=== PATIENT | female | born 1965 | race Caucasian/White ===

== ENCOUNTER → 2018-11-02 | Outpatient (CLI) | payer OTHER ==
[~2018-11-02] MED LIST: ALBU90OI61 INH; AZIT250 PO; CODGUAEL PO; CYCL10 PO; GLIM2 PO; HYDACE5 PO; LATA.005SO BOTHEYES; LEVSOD25 PO; LISI20 PO; MOXI400 PO; PROCODE120 PO
== END | disposition home or self-care (01) ==
LOC: PLD 07:54 → LAB SHORT 07:54
DX: D18.09 Hemangioma of other sites (principal)
CPT/HCPCS: 88305

== ENCOUNTER 2018-11-13 06:20 | Day surgery (SDC) | payer OTHER ==
[~2018-11-13] VITALS: Ht 170.2 cm; Wt 150.5 kg
--- NOTE | 2018-11-13 06:58 | NUR ---
History, Chart, Medications and Allergies reviewed before start of procedure. Patient confirms NPO status and agrees with scheduled surgery. Lungs clear T/O to Auscultation. Pre-Op teaching done. Pt verbalizes understanding. Patient States Post-Procedure ride home has been arranged. Patient states colon prep results clear.
--- NOTE | 2018-11-13 08:05 | NUR ---
11/13/[address] HERE TO PROVIDE ANESTHESIA CARE TODAY, PLEASE SEE ANESTHESIA RECORD FOR DETAILS. History, Chart, Medications and Allergies reviewed before start of procedure. PATIENT CONFIRMS NPO STATUS AND AGREES WITH SCHEDULED PROCEDURE. MONITOR INTACT WITH CONTINUOUS PULSE OXIMETRY AND INTERMITTENT BP. O2 VIA N/C INTACT THROUGHOUT SEDATION/PROCEDURE.
--- NOTE | 2018-11-13 09:38 | NUR ---
SUMMARY: PT HAD UNCOMPLICATED POST PROCEDURE COURSE. UNABLE TO TOLERATE BP CUFF ON ARM RELATED TO STITCHES IN PLACE UNDER CUFF FROM OLD PROCEDURE. B/P 130S SYSTOLIC UPON ARRIVAL. NO SYMPTOMS OF HYPOTENSION SO DID NOT DO SECOND BP RELATED TO PTS INTOLERANCE OF CUFF. PT AMBULATED IN DEPARTMENT WITHOUT DIFFICULTY. NO C/O DIZZINESS. TOLERATING PO FLUIDS. REVIEWED DISCHARGE INSTRUCTIONS WITH PATIENT WHO VERBALIZED UNDERSTANDING OF ALL INSTRUCTIONS GIVEN. HANDOUTS GIVEN AND IV DC TIP INTACT. PT DC HOME WITH FRIEND TO DRIVE HER.
== END 2018-11-13 23:19 | disposition home or self-care (01) ==
LOC: ORSCMMR 06:20 → ORD 08:00 → ORSCMMR 08:00
PROVIDERS: Internal Medicine Gastroenterology
PROC: 0DBN8ZX Excision of Sigmoid Colon, Via Natural or Artificial Opening Endoscopic, Diagnostic (ICD-10-PCS; principal; 2018-11-13 08:00)
PROC: 0DBL8ZX Excision of Transverse Colon, Via Natural or Artificial Opening Endoscopic, Diagnostic (ICD-10-PCS; principal; 2018-11-13 08:00)
PROC: 0DBK8ZX Excision of Ascending Colon, Via Natural or Artificial Opening Endoscopic, Diagnostic (ICD-10-PCS; principal; 2018-11-13 08:00)
DX: Z12.11 Encounter for screening for malignant neoplasm of colon (principal); C18.7 Malignant neoplasm of sigmoid colon; D12.3 Benign neoplasm of transverse colon; D12.2 Benign neoplasm of ascending colon; K57.30 Diverticulosis of large intestine without perforation or abscess without bleeding; K64.8 Other hemorrhoids; E11.9 Type 2 diabetes mellitus without complications; I10 Essential (primary) hypertension; E66.01 Morbid (severe) obesity due to excess calories; Z68.43 Body mass index [BMI] 50.0-59.9, adult; Z79.899 Other long term (current) drug therapy
CPT/HCPCS: 82947; 88305; J2704; J7120

== ENCOUNTER → 2019-05-03 | Outpatient (CLI) | payer OTHER | END | disposition home or self-care (01) | LOC: PLD 10:31 → LAB SHORT 10:31 | DX: L30.8 Other specified dermatitis (principal); L28.0 Lichen simplex chronicus | CPT/HCPCS: 88305; 88312 ==

== ENCOUNTER 2019-12-03 06:24 | Day surgery (SDC) | payer OTHER ==
[~2019-12-03] VITALS: Ht 170 cm; Wt 143.7 kg
[2019-12-03] MEDS ORDERED: ALLEGRA ALLERG180 MG PO (06:59)
[2019-12-03] MEDS ORDERED: BASAGLAR K100 UNIT/1 SC (06:59)
[2019-12-03] MEDS ORDERED: FAMO20 PO (07:00)
[2019-12-03] MEDS ORDERED: XOLAIR150 MG/1 M IM (07:01)
[2019-12-03] MEDS ORDERED: MELATONIN5 M1 PO (07:02)
[2019-12-03] MEDS ORDERED: Hair, Skin & N1 EACH PO (07:02)
--- NOTE | 2019-12-03 07:56 | NUR ---
Ambulatory in Day Surgery History, Chart, Medications and Allergies reviewed before start of procedure.Patient states colon prep results clear. Patient confirms NPO status and agrees with scheduled surgery. Patient States Post-Procedure ride home has been arranged.
--- NOTE | 2019-12-03 08:31 | NUR ---
12/03/19 0831 Vidya Mcneal MONITOR INTACT WITH CONTINUOUS PULSE OXIMETRY AND INTERMITTENT BP.
--- NOTE | 2019-12-03 09:26 | NUR ---
Patient up to Ambulate independently. Gait steady. Discharge instructions reviewed with patient. Patient verbalizes understanding. Copy given to patient to take home. Discharged via wheelchair to private car for ride home WITH FRIEND.
== END 2019-12-03 22:51 | disposition home or self-care (01) ==
LOC: ORSCMMR 06:24 → ORD 08:00 → ORSCMMR 08:00
PROVIDERS: Internal Medicine Gastroenterology
PROC: 0DBN8ZX Excision of Sigmoid Colon, Via Natural or Artificial Opening Endoscopic, Diagnostic (ICD-10-PCS; principal; 2019-12-03 08:00)
DX: Z85.038 Personal history of other malignant neoplasm of large intestine (principal); Z86.010 Personal history of colon polyps; K63.5 Polyp of colon; K64.8 Other hemorrhoids; I10 Essential (primary) hypertension; E03.9 Hypothyroidism, unspecified; E11.9 Type 2 diabetes mellitus without complications; E66.9 Obesity, unspecified; Z68.42 Body mass index [BMI] 45.0-49.9, adult; G47.33 Obstructive sleep apnea (adult) (pediatric); Z79.4 Long term (current) use of insulin; Z79.899 Other long term (current) drug therapy
CPT/HCPCS: 82947; 88305; J2250; J2704; J7120

== ENCOUNTER → 2020-02-09 | Outpatient (CLI) | payer OTHER ==
[~2020-02-09] MED LIST changes: +ALLEGRA ALLERG180 MG PO; +BASAGLAR K100 UNIT/1 SC; +FAMO20 PO; +Hair, Skin & N1 EACH PO; +MELATONIN5 M1 PO; +XOLAIR150 MG/1 M IM
== END | disposition home or self-care (01) ==
LOC: LAB 19:20 → LAB SHORT 19:20
DX: N30.01 Acute cystitis with hematuria (principal)
CPT/HCPCS: 87077; 87086; 87186

== ENCOUNTER → 2020-05-29 | Outpatient (CLI) | payer OTHER ==
[~2020-05-29] MED LIST changes: +ATOR20 PO; +NOVOLOG FL100 UNIT/3; +PREG100 PO; +TIZA4 PO
== END | disposition home or self-care (01) ==
LOC: LAB SHORT 08:00 → PLD 08:00
DX: L08.0 Pyoderma (principal)
CPT/HCPCS: 87070; 87205

== ENCOUNTER 2020-09-19 22:29 | Emergency (ER) | payer OTHER ==
[~2020-09-19] VITALS: Ht 170.2 cm; Wt 143.3 kg
[~2020-09-19 22:29] MED LIST changes: -ATOR20 PO; -NOVOLOG FL100 UNIT/3; -PREG100 PO; -TIZA4 PO
[2020-09-20 00:17] LABS: BASOPHILS ABSOLUTE AUTO 0.02 K/mm3 (0.00-0.23); BASOPHILS PERCENT AUTO 0 % (0-2); EOSINOPHILS ABSOLUTE AUTO 0.01 K/mm3 (0.00-0.68); EOSINOPHILS PERCENT AUTO 0 % (0-6); Hematocrit 39.4 % (33.0-51.0); Hemoglobin 13.4 g/dL (11.5-16.0); IMMATURE GRAN ABSOLUTE AUTO 0.11 K/mm3 (0.00-0.10); IMMATURE GRAN PERCENT AUTO 1 % (0-1); LYMPHOCYTES ABSOLUTE AUTO 0.89 K/mm3 (0.84-5.20); LYMPHOCYTES PERCENT AUTO 8 % (21-46); MONOCYTES ABSOLUTE AUTO 0.06 K/mm3 (0.16-1.47); MONOCYTES PERCENT AUTO 1 % (4-13); Mean Corpuscular Volume 91 fL (80-100); Mean Platelet Volume 10.8 fL (9.1-12.4); NEUTROPHILS ABSOLUTE AUTO 10.69 K/mm3 (1.96-9.15); NEUTROPHILS PERCENT AUTO 91 % (41-73); Platelet Count 313 K/mm3 (150-400); RDW Standard Deviation 43.5 fL (35.1-46.3); Red Blood Cell Count 4.32 M/mm3 (3.80-5.20); White Blood Cell Count 11.78 K/mm3 (4.00-11.30)
[2020-09-20 00:48] LABS: Alanine Aminotransfer (ALT/SGP 80 U/L (12-78); Albumin/Globulin Ratio 0.9 (0.8-1.8); Alk Phos 181 U/L (50-136); Anion Gap 9 mmol/L (6-16); Aspartate Aminotrans (AST/SGOT 40 U/L (12-37); Bilirubin, Total 0.8 mg/dL (0.1-1.0); Blood Urea Nitrogen 29 mg/dL (8-24); CO2, Blood 23 mmol/L (21-32); Calcium, Blood 9.5 mg/dL (8.5-10.1); Chloride, Blood 99 mmol/L (98-108); Creatinine, Blood 0.81 mg/dL (0.40-1.00); Globulin, Blood 4.4 g/dL (2.2-4.0); Glomerular Filtration Rate >60 (60-); Glucose, Blood 491 mg/dL (70-99); Potassium, Blood 4.5 mmol/L (3.5-5.5); Sodium, Blood 131 mmol/L (136-145); Total Protein, Blood 8.4 g/dL (6.4-8.2)
[2020-09-20] MEDS ORDERED: NOVOLOG FL100 UNIT/3 (01:35)
[2020-09-20] MEDS ORDERED: TIZA4 PO (01:36)
[2020-09-20] MEDS ORDERED: ATOR20 PO (01:36)
[2020-09-20] MEDS ORDERED: PREG100 PO (01:36)
[2020-09-20 02:21] LABS: Source, Urine Clean Catch
[2020-09-20 02:24] LABS: Bilirubin, Urine Neg (Neg); Blood, Urine Neg (Neg); Glucose Qualitative, Urine 4+ (Neg); Ketones, Urine Neg (Neg); Leukocyte Esterase, Urine Neg (Neg); Nitrite, Urine Neg (Neg); Protein, Urine 1+ (Neg); Urobilinogen, Urine NORM (Normal)
[2020-09-20 02:26] LABS: Appearance, Urine Clear (Clear); Color, Urine Yellow (P-Yellow)
== END 2020-09-20 03:15 | disposition home or self-care (01) ==
LOC: ER 22:29
PROVIDERS: Emergency Medicine
DX: E11.65 Type 2 diabetes mellitus with hyperglycemia (principal); Z88.0 Allergy status to penicillin; Z88.1 Allergy status to other antibiotic agents; Z79.4 Long term (current) use of insulin; Z79.899 Other long term (current) drug therapy
CPT/HCPCS: 36415; 71046; 80053; 82010; 82947; 85025; 93005; 93010; 99284-25; J1815; J7030

== ENCOUNTER 2022-11-22 10:57 | Day surgery (SDC) | payer OTHER ==
[~2022-11-22] VITALS: Ht 170.2 cm; Wt 146.5 kg
[~2022-11-22 10:57] MED LIST changes: +ATOR20 PO; +NOVOLOG FL100 UNIT/3; +PREG100 PO; +TIZA4 PO
[2022-11-22] MEDS ORDERED: DUPIXENT P300 MG/2 M SQ (12:06)
[2022-11-22] MEDS ORDERED: Pepcid 20 mg Ta20 MG (12:07)
[2022-11-22] MEDS ORDERED: MOME.1TO (12:07)
[2022-11-22] MEDS ORDERED: INSULANPEN SC ×2 (12:07→12:08)
[2022-11-22] MEDS ORDERED: JARDIANCE25 MG PO (12:07)
[2022-11-22 13:51] VITALS: BP 116/70
--- NOTE | 2022-11-22 13:52 | NUR ---
11/22/22 1352 Vidya Hassan IV DC'D CATH INTACT. PT TOLERATED WELL
== END 2022-11-22 13:52 | disposition home or self-care (01) ==
LOC: ORSCSDS 10:57
PROVIDERS: Internal Medicine Gastroenterology
PROC: 0DBL8ZX Excision of Transverse Colon, Via Natural or Artificial Opening Endoscopic, Diagnostic (ICD-10-PCS; principal; 2022-11-22 12:15)
DX: Z12.11 Encounter for screening for malignant neoplasm of colon (principal); Z85.038 Personal history of other malignant neoplasm of large intestine; Z86.010 Personal history of colon polyps; D12.3 Benign neoplasm of transverse colon; K64.8 Other hemorrhoids; G47.33 Obstructive sleep apnea (adult) (pediatric); R01.1 Cardiac murmur, unspecified; E11.9 Type 2 diabetes mellitus without complications; Z79.84 Long term (current) use of oral hypoglycemic drugs; Z79.899 Other long term (current) drug therapy
CPT/HCPCS: 82947; 88305; J2704; J7120

== ENCOUNTER → 2023-05-27 | Outpatient (CLI) | payer OTHER ==
[~2023-05-27] MED LIST changes: +DUPIXENT P300 MG/2 M SQ; +INSULANPEN SC; +JARDIANCE25 MG PO; +MOME.1TO; +Pepcid 20 mg Ta20 MG
== END ==
LOC: LAB SHORT 15:26 → LAB 15:26
DX: L82.0 Inflamed seborrheic keratosis (principal); R23.4 Changes in skin texture
CPT/HCPCS: 88305

== ENCOUNTER 2023-10-02 06:54 | Day surgery (SDC) | payer OTHER ==
[~2023-10-02] VITALS: Ht 170.2 cm; Wt 148.2 kg
[2023-10-02] MEDS ORDERED: INSULANPEN (07:17)
[2023-10-02] MEDS ORDERED: Lactated Ringer's 1,000 ML IV ONE ×2 (07:50→08:00)
[2023-10-02] MEDS ORDERED: propofoL 50 ML IV ONE (08:05)
[2023-10-02 09:04] VITALS: BP 119/95
== END 2023-10-02 08:58 | disposition home or self-care (01) ==
LOC: ORSCSDS 06:54 → ORD 09:30 → ORSCSDS 09:30
PROVIDERS: Internal Medicine Gastroenterology
PROC: 0DB98ZX Excision of Duodenum, Via Natural or Artificial Opening Endoscopic, Diagnostic (ICD-10-PCS; principal; 2023-10-02 08:00)
PROC: 0DB68ZX Excision of Stomach, Via Natural or Artificial Opening Endoscopic, Diagnostic (ICD-10-PCS; principal; 2023-10-02 08:00)
DX: R10.9 Unspecified abdominal pain (principal); K29.50 Unspecified chronic gastritis without bleeding; G47.33 Obstructive sleep apnea (adult) (pediatric); I10 Essential (primary) hypertension; E78.5 Hyperlipidemia, unspecified; E11.9 Type 2 diabetes mellitus without complications; E03.9 Hypothyroidism, unspecified; E66.9 Obesity, unspecified; Z68.43 Body mass index [BMI] 50.0-59.9, adult; Z79.4 Long term (current) use of insulin; Z79.899 Other long term (current) drug therapy
CPT/HCPCS: 82947; 88305; 88342; J2704; J7120

== ENCOUNTER → 2023-12-22 | Outpatient (CLI) | payer OTHER ==
[~2023-12-22] MED LIST changes: +INSULANPEN
[2023-12-23 12:11] LABS: Campylobacter Sp Not Detected (NOT DETECT); Plesiomonas Shigelloides Not Detected (NOT DETECT); Salmonella Sp Not Detected (NOT DETECT); Vibrio Sp Not Detected (NOT DETECT); Yersinia Enterocolitica Not Detected (NOT DETECT)
[2023-12-23 12:12] LABS: Adenovirus F 40/41 Not Detected (NOT DETECT); Astrovirus Not Detected (NOT DETECT); Cryptosporidium Not Detected (NOT DETECT); Cyclospora Cayetanensis Not Detected (NOT DETECT); E. Coli O157 Not Detected (NOT DETECT); Entamoeba Histolytica Not Detected (NOT DETECT); Enteroaggregative E. coli-EAEC Not Detected (NOT DETECT); Enteropathogenic E. coli-EPEC Not Detected (NOT DETECT); Enterotoxigenic E. coli-ETEC Not Detected (NOT DETECT); Giardia Lamblia Not Detected (NOT DETECT); Norovirus GI/GII Not Detected (NOT DETECT); Rotavirus A Not Detected (NOT DETECT); Sapovirus Not Detected (NOT DETECT); Shiga Toxin-prod E. coli-STEC Not Detected (NOT DETECT); Shigella/Enteroin E. coli-EIEC Not Detected (NOT DETECT); Vibrio Cholerae Not Detected (NOT DETECT)
== END | disposition home or self-care (01) ==
LOC: LAB 18:51 → LAB SHORT 18:51
PROVIDERS: Hospitalist
DX: R19.7 Diarrhea, unspecified (principal)
CPT/HCPCS: 87507